=== PATIENT | female | born 1960 | race Caucasian/White ===

== ENCOUNTER 2017-05-14 08:29 | Emergency (ER) | payer MEDICAID ==
[2017-05-14 08:39] VITALS: BP 157/92; BMI 28.7
[2017-05-14] MEDS ORDERED: TORADOL 60 MG VIAL IM ONE (08:59)
[2017-05-14] MEDS ORDERED: TORADOL 60 MG VIAL ONE (09:00)
--- NOTE | 2017-05-14 09:12 | DR.GENAD ---
HPI - PCP Primary Care Physician: Still - Complaint/Symptoms Chief Complaint:: "I was hanging some blinds about a week or so ago and I rolled my ankle. I felt something crack, but thought I just sprain my ankle. Now my toes are numb and they are turning blue." - Source History Provided: Patient - Mode of Arrival Mode of Arrival: Wheelchair - Timing Onset of Chief Complaint: 05/04/17 PMH - PMH Past Medical History: Yes Past Medical History: COPD, Depression, GERD Past Surgical History: Yes Surgical History: Cholecystectomy, Hysterectomy, Tonsillectomy Past Surgical History Comment: Gastric bypass - Family History History of Family Medical Conditions: Yes Family Medical History: Diabetes Mellitus, [place], Hypertension - Social History Does patient currently use any type of tobacco product: Yes Have you used tobacco products in the last 12 months: Yes Type of Tobacco Use: Cigarettes Does any household member use tobacco: Yes Alcohol Use: Heavy Do you use any recreational Drugs:: No Lives With: Family Lives Where: Home - infectious screening In the last 2 months have you had wt loss of >10#?: NO Have you had fever, night sweats or hemotysis?: No Have you traveled outside the country in the last 6 months?: No Isolation: Standard ROS - Review of Systems Eyes: No Symptoms Reported ENTM: No Symptoms Reported Respiratoy: No Symptoms Reported Cardiovascular: No Symptoms Reported Gastrointestinal/Abdominal: No Symptoms Reported Genitourinary: No Symptoms Reported Neurological: No Symptoms Reported Musculoskeletal: Ankle (swollen), Foot (swollen, dusky) PE - Vital Signs Vitals: Temperature 98.4 F Pulse Rate 74 Respiratory Rate 18 Blood Pressure 157/92 O2 Sat by Pulse Oximetry 98 - General Limitations: Physical Limitation (limited ambulation on left foot) General Appearance: Alert, In No Apparent Distress - Head Head Exam: Normal Inspection, Atraumatic - Eyes Eye exam: Normal Appearance, PERRL, EOMI - ENT ENT Exam: Normal Exam, Normal Oropharynx External Ear Exam: Normal External Inspection TM/Canal Exam: Bilateral Normal Nose Exam: Normal Nose Exam Mouth Exam: Normal Inspection Throat Exam: Normal Inspection - Neck Neck Exam: Normal Inspection, Full ROM - Chest Chest Inspection: Normal Inspection - Respiratory Respiratory Exam: Normal Lung Sounds Bilat Respiratory Exam: Bilateral Clear to Auscultation - Cardiovascular Cardiovascular Exam: Regular Rate - Abdominal Exam Abdominal Exam: Normal Inspection, Normal Bowel Sounds - Extremities Extremities Exam: Tenderness (foot and ankle), Edema (left ankle and foot), Joint Swelling (left ankle) - Back Back Exam: Normal Inspection, Full ROM - Neurologic Neurological Exam: Alert, Oriented X3, CN II-XII Intact - Psychiatric Psychiatric Exam: Normal Affect, Normal Mood - Skin Skin Exam: Warm, Dry ROR - XRAY XRAY Interpreted by: Radiologist (Acute cortical disruption within the midshaft of the 5th metatarsal with associated soft tissue swelling noted.) - Diagnosis Discharge Problem: Fracture of 5th metatarsal Qualifiers: Encounter type: initial encounter Fracture type: closed Fracture alignment: displaced Laterality: left Qualified Code(s): S92.352A - Displaced fracture of fifth metatarsal bone, left foot, initial encounter for closed fracture - Discharge Plan Condition: Stable - Follow ups/Referrals Follow ups/Referrals: DORSI ROSADO [Primary Care Provider] - 3 days - Instructions
--- NOTE | 2017-05-14 09:30 | RAD ---
HISTORY: Foot pain and swelling Study: Three views left foot Comparison: None Findings: Acute cortical disruption with mild lateral displacement of the distal fracture fragment is observed within the 5th metatarsal. The remainder of the metatarsals as well as a distal phalanges appear inta ct. Tarsal bones will see talus and calcaneus appear unremarkable. IMPRESSION: Acute cortical disruption within the midshaft of the 5th metatarsal with associated soft tissue swell ing noted. Reported By:
== END 2017-05-14 09:50 | disposition home or self-care (01) ==
LOC: ER 08:49
DX: S92.352A Displaced fracture of fifth metatarsal bone, left foot, initial encounter for closed fracture (principal); Y33.XXXA Other specified events, undetermined intent, initial encounter; Y92.9 Unspecified place or not applicable
CPT/HCPCS: 73630; 96372; 99282; J1885

== ENCOUNTER → 2017-05-27 | Outpatient (CLI) | payer MEDICAID ==
[2017-05-14 08:39] VITALS: BP 157/92
--- NOTE | 2017-05-27 09:42 | RAD ---
Three views of the left foot Indication: Left foot pain, follow-up fracture Comparison: 05/14/2017 Findings: There is no change in mildly displaced obliquely oriented fracture of the little toe metata rsal shaft, there is no evidence of internal or external callus formation at the site of fracture. Th ere is mild residual soft tissue swelling within the lateral aspect of the left foot. No acute radiographic abnormality within the left foot. Lisfranc joint alignment is maintained. Mild diffuse fatty change of the distal Achilles tendon. There is mild degenerative change of the dorsal t alonavicular joint. Impression: Since prior examination of 05/14/2017 there is no radiographic change in mildly displaced obliquely oriented fracture of the little toe metatarsal shaft. No radiographic evidence of healing. Reported By:
== END ==
LOC: RAD 08:47
PROVIDERS: ATTEND Specialist
DX: M79.672 Pain in left foot (principal); S92.352A Displaced fracture of fifth metatarsal bone, left foot, initial encounter for closed fracture; X58.XXXA Exposure to other specified factors, initial encounter
CPT/HCPCS: 73630